=== PATIENT | male | born 1950 | race Two or more races ===

== ENCOUNTER 2020-04-21 10:47 | Emergency (ER) | payer OTHER ==
[~2020-04-21] VITALS: Ht 167.6 cm; Wt 62.6 kg
[2020-04-21] MEDS ORDERED: PRILOSEC OTC20 MG (10:57)
[2020-04-21] MEDS ORDERED: BACLOFEN20 MG (10:57)
[2020-04-21] MEDS ORDERED: CLONAZEPAM1 GM (10:58)
[2020-04-21] MEDS ORDERED: LEVETIRACETAM1000 MG (10:58)
[2020-04-21] MEDS ORDERED: DULOXETINE HCL40 MG (10:58)
== END 2020-04-21 15:44 | disposition home or self-care (01) ==
LOC: ER 10:47
DX: G40.802 Other epilepsy, not intractable, without status epilepticus (principal); R42 Dizziness and giddiness

== ENCOUNTER 2020-09-10 10:38 | Inpatient (IN) | payer OTHER ==
[~2020-09-10] VITALS: Ht 165.1 cm; Wt 57.6 kg
[~2020-09-10 10:38] MED LIST: BACLOFEN20 MG; CLONAZEPAM1 GM; DULOXETINE HCL40 MG; LEVETIRACETAM1000 MG; PRILOSEC OTC20 MG
[2020-09-10] MEDS ORDERED: CLONAZEPAM1 MG PO (10:46)
[2020-09-10] MEDS ORDERED: GLIPIZIDE XL2.5 MG PO (10:47)
[2020-09-10] MEDS ORDERED: GABAPENTIN300 M2 PO (10:47)
[2020-09-10] MEDS ORDERED: SIMVASTATIN10 MG PO (10:47)
[2020-09-10] MEDS ORDERED: DULOXETINE HCL60 MG PO (10:47)
[2020-09-10] MEDS ORDERED: OMEPRAZOLE20 MG PO (10:47)
--- NOTE | 2020-09-10 10:53 | NUR ---
SE RECIBE PACIENTE EN SILLA DE SINAI ALERTA, ORIENTADO EN LUGAR Y PERSONA. ACOMPANADO DE LLANES HIJA . REFIERE TENER MAREO Y DEBILIDAD EN LADO DERECHO DEL CUERPO, SE ESTIMAN S/V SE REPORTAN SE REALIZA EKG SE PRESENTA A
--- NOTE | 2020-09-10 11:39 | NUR ---
SE ORIENTA PTE SOBRE EL TRATAMIENTO ORDENADO POR LA GIBSON RENEE PTE ALERTA Y CONCIENTE POR 3 RN PAZ REALIZA MUESTRAS DE LABORATORIO PTE SE MANTIENE EN OBSERVACION Y SE MANTIENE EN OBSERVACIO BAJO TRATAMIENTO.
--- NOTE | 2020-09-10 17:04 | NUR ---
SE RECIBE PTE ALERTA Y ORIENTADO EN PERSONA ACOMPANADO DE FAMILIAR. PTE EN SUZANNE CON BARANDAS ELEVADAS. PTE CON H/L COLOCADO Y 0.9NSS BAJANDO A 100ML/HR. PTE EN ESPERA DE CONSULTA CON MEDICINA INTERNA Y NEUROLOGO. PTE SE CONTINUA MONITORIANDO POR CAMBIOS.
[2020-09-11] MEDS ORDERED: ENDOCET 5-3251 EACH (13:24)
[2020-09-11] MEDS ORDERED: TRAVOPROST2.5 ML (13:25)
[2020-09-11] MEDS ORDERED: LEVETIRACETAM1000 MG (13:25)
[2020-09-11] MEDS ORDERED: BACLOFEN20 MG (13:25)
[2020-09-15] MEDS ORDERED: BACLOFEN10 MG PO (12:47)
[2020-09-15] MEDS ORDERED: CLOPIDOGREL BIS75 MG PO (12:47)
[2020-09-15] MEDS ORDERED: SIMVASTATIN10 MG PO (12:47)
[2020-09-15] MEDS ORDERED: KEPPRA500 MG PO (12:48)
[2020-09-15] MEDS ORDERED: CYMBALTA60 MG PO (12:48)
[2020-09-15] MEDS ORDERED: GABAPENTIN300 MG PO (12:48)
[2020-09-15] MEDS ORDERED: PROTONIX40 MG PO (12:48)
== END 2020-09-15 17:14 | DRG 65 ==
LOC: ER 10:38 → MEDI 19:44
PROVIDERS: ADMIT Internal Medicine; ATTEND Internal Medicine
PROC: B24BZZZ Ultrasonography of Heart with Aorta (ICD-10-PCS; 2020-09-10)
PROC: BW28ZZZ Computerized Tomography (CT Scan) of Head (ICD-10-PCS; 2020-09-10)
PROC: 4A12X4Z Monitoring of Cardiac Electrical Activity, External Approach (ICD-10-PCS; principal; 2020-09-11)
PROC: BW38ZZZ Magnetic Resonance Imaging (MRI) of Head (ICD-10-PCS; 2020-09-11)
DX: I63.89 Other cerebral infarction (principal); G40.219 Localization-related (focal) (partial) symptomatic epilepsy and epileptic syndromes with complex partial seizures, intractable, without status epilepticus; I69.851 Hemiplegia and hemiparesis following other cerebrovascular disease affecting right dominant side; Z20.822 Contact with and (suspected) exposure to COVID-19
CPT/HCPCS: 70545

== ENCOUNTER 2024-10-12 12:17 | Outpatient (CLI) | payer OTHER ==
[~2024-10-12 12:17] MED LIST changes: +BACLOFEN10 MG PO; +CLONAZEPAM1 MG PO; +CLOPIDOGREL BIS75 MG PO; +CYMBALTA60 MG PO; +DULOXETINE HCL60 MG PO; +ENDOCET 5-3251 EACH; +GABAPENTIN300 M2 PO; +GABAPENTIN300 MG PO; +GLIPIZIDE XL2.5 MG PO; +KEPPRA500 MG PO; +OMEPRAZOLE20 MG PO; +PROTONIX40 MG PO; +SIMVASTATIN10 MG PO; +TRAVOPROST2.5 ML
== END 2024-10-12 12:21 | disposition home or self-care (01) ==
LOC: NUCLEAR 12:17
PROVIDERS: ATTEND Psychiatry & Neurology Clinical Neurophysiology
DX: I82.401 Acute embolism and thrombosis of unspecified deep veins of right lower extremity (principal); I87.2 Venous insufficiency (chronic) (peripheral)